=== PATIENT | male | born 1955 | race Caucasian/White ===

== ENCOUNTER 2017-03-27 09:20 | Emergency (ER) | payer BC, OTHER ==
[2017-03-27] MEDS ORDERED: Sodium Chloride 0.9% 10 ML Syringe FLUSH PRN (09:37)
--- NOTE | 2017-03-27 10:17 | CR ---
Chest: Portable view of the chest was obtained. Comparison: No prior study. Heart size and mediastinum are normal. Lungs are clear. Bony structures are grossly intact. Impression: 1. Nothing acute is appreciated on portable chest x-ray. Diagnostic code #1
[2017-03-27] MEDS ORDERED: Metoprolol Tartrate 50 MG Tab PO ONE (10:25)
--- NOTE | 2017-03-27 11:26 | EDM.PDOC ---
ED HPI GENERAL MEDICAL PROBLEM - General Chief Complaint: Cardiovascular Problem Stated Complaint: RAPID HEART RATE Time Seen by Provider: 03/27/17 09:37 Source of Information: Reports: Patient, RN Notes Reviewed - History of Present Illness INITIAL COMMENTS - FREE TEXT/NARRATIVE: 61-year-old male presents with shortness of breath, palpitations, tachycardia. He beginning noticing this last evening. He did track several readings of blood pressure and heart rate during the night and they were elevated. Continued to have elevated blood pressure this morning and elevated heart rate so therefore comes in for evaluation at this time. He has no chest pain pressure or tightness. His shortness of breath is primarily with exertion. 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 He states he did get some H2 S exposure yesterday morning. He was not aware of strong odor but states she is having trouble measuring the take and therefore did have the The take open for a longer period of time than normal. States his badge " did go off". He did have mild headache yesterday afternoon and evening. Early mild nonspecific dizziness. No nausea vomiting. This morning the headache is gone. He is on medication for hypertension. He is not diabetic. He has no known history for coronary artery disease. 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 DIRECTOR: Reports: Other (see below) Other 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 DIRECTOR: walk in clinic - Related Data Allergies Allergy/AdvReac Type Severity Reaction Status Date / Time Penicillins Allergy Leg Cramps Verified 03/27/17 09:32 Home Meds: Home Meds Amitriptyline [Elavil] 50 mg PO BEDTIME 03/27/17 [History] Febuxostat [Uloric] 80 mg PO DAILY 03/27/17 [History] Meloxicam 15 mg PO DAILY 03/27/17 [History] Metoprolol Succinate 100 mg PO DAILY 03/27/17 [History] Chelsea-3/DHA/Epa/Fish Oil [Chelsea 3 500 Softgel] 1,000 mg PO BID 03/27/17 [History ] Pseudoephedrine [Sudogest] 30 mg PO DAILY PRN 03/27/17 [History] Testosterone [Androgel] 2 applic TD DAILY 03/27/17 [History] Trandolapril 4 mg PO BID 03/27/17 [History] Triamterene/Hydrochlorothiazid [Triamterene-HCTZ 37.5-25 MG] 1 each PO DAILY [History] Past Medical History HEENT History: Reports: Impaired Vision Cardiovascular History: Reports: Hypertension, Other (See Below) Other Cardiovascular History: echocardiogram completed January 2017 and "was normal" Musculoskeletal History: Reports: Arthritis Neurological History: Reports: Other (See Below) Other Neuro History: headaches with elevated BP Psychiatric History: Reports: Anxiety, Other (See Below) Other Psychiatric History: insomnia Endocrine/Metabolic History: Reports: Other (See Below) Other Endocrine/Metabolic History: Hx lyme's disease in his 20's - Past Surgical History GI Surgical History: Reports: Hernia, Abdominal, Hernia, Inguinal Social & Family History - Family History Family Medical History: Noncontributory - Tobacco Use Smoking Status *Q: Never Smoker Second Hand Smoke Exposure: No - Caffeine Use Caffeine Use: Reports: Coffee - Recreational Drug Use Recreational Drug Use: No ED ROS GENERAL - Review of Systems Review Of Systems: See Below Constitutional: Denies: Fever, Chills, Diaphoresis HEENT: Reports: No Symptoms Respiratory: Reports: Shortness of Breath (Exertional). Denies: Cough Cardiovascular: Reports: Dyspnea on Exertion, Lightheadedness. Denies: Chest Pain (Not coughing any more than usual) GI/Abdominal: Denies: Abdominal Pain, Nausea, Vomiting Musculoskeletal: Denies: Neck Pain, Shoulder Pain, Arm Pain, Back Pain Skin: Reports: No Symptoms Neurological: Reports: Dizziness, Headache. Denies: Numbness (Resolving), Tingling, Trouble Speaking, Weakness ED EXAM, GENERAL - Physical Exam Exam: See Below General Appearance: Alert, Anxious (Mild) Eye Exam: Bilateral Eye: PERRL Throat/Mouth: Normal Inspection, Normal Oropharynx Head: Atraumatic. No: Facial Swelling Neck: Supple, Full Range of Motion Respiratory/Chest: No Respiratory Distress, Lungs Clear, Normal Breath Sounds. No: Rales, Rhonchi, Wheezing Cardiovascular: Tachycardia GI/Abdominal: Soft, Non-Tender. No: Guarding Back Exam: No: CVA Tenderness (L), CVA Tenderness (R) Extremities: Normal Inspection. No: Pedal Edema, Leg Pain Neurological: Alert, Oriented, No Motor/Sensory Deficits Skin Exam: Warm, Dry, Normal Color EKG INTERPRETATION EKG Date: 03/27/17 Rhythm: NSR O'Brien: Normal P-Wave: Present QRS: Normal ST-T: Other (He does have T-wave depression in aVL V4 and V5, no major ST elevation or depression.) Course - Vital Signs Last Recorded V/S: Last Vital Signs Temp 97.8 F 03/27/17 09:25 Pulse 109 H 03/27/17 10:31 Resp 18 03/27/17 09:25 BP 145/105 H 03/27/17 10:31 Pulse Ox 99 03/27/17 09:25 - Orders/Labs/Meds Orders: Active Orders 24 hr Category Date Time Status EKG 12 Lead [EKG Documentation Completion] [] STAT Care 03/27/17 09:37 Active Peripheral IV Care [] . DIRECTED Care 03/27/17 09:38 Active Sodium Chloride 0.9% [Saline Flush] Med 03/27/17 09:37 Active 10 ml FLUSH ASDIRECTED PRN Peripheral IV Insertion Adult [OM.PC] Stat Oth 03/27/17 09:38 Ordered Medication Orders Sodium Chloride (Saline Flush) 10 ml FLUSH ASDIRECTED PRN PRN Reason: Keep Vein Open Last Admin: 03/27/17 10:32 Dose: 10 ml Labs: Laboratory Tests 03/27/17 03/27/17 Range/Units 09:59 09:59 WBC 5.64 (4.23-9.07) K/mm3 RBC 5.62 (4.63-6.08) M/mm3 Hgb 16.2 (13.7-17.5) gm/L Hct 46.1 (40.1-51.0) % MCV 82.0 (79.0-92.2) fl MCH 28.8 (25.7-32.2) pg MCHC 35.1 (32.2-35.5) g/dl RDW Std Deviation 38.9 (35.1-43.9) fL Plt Count 274 (163-337) K/mm3 MPV 8.3 L (9.4-12.3) fl Neutrophils % (Manual) 57 (40-60) % Band Neutrophils % 0 (0-10) % Lymphocytes % (Manual) 30 (20-40) % Atypical Lymphs % 0 % Monocytes % (Manual) 11 H (2-10) % Eosinophils % (Manual) 2 (0.8-7.0) % Basophils % (Manual) 0 L (0.2-1.2) Platelet Estimate Adequate RBC Morph Comment Normal Sodium 138 (136-145) mEq/L Potassium 4.5 (3.5-5.1) mEq/L Chloride 101 (98-107) mEq/L Carbon Dioxide 25 (21-32) mEq/L Anion Gap 16.5 H (5-15) BUN 12 (7-18) mg/dL Creatinine 1.3 (0.7-1.3) mg/dL Est Cr Clr Drug Dosing 55.21 mL/min Estimated GFR (MDRD) 57 (>60) mL/min BUN/Creatinine Ratio 9.2 L (14-18) Glucose 120 H (74-106) mg/dL Calcium 9.5 (8.5-10.1) mg/dL Total Bilirubin 0.6 (0.2-1.0) mg/dL AST 29 (15-37) U/L ALT 66 H (16-63) U/L Alkaline Phosphatase 59 (46-116) U/L Troponin I < 0.017 (0.00-0.056) ng/mL Total Protein 8.0 (6.4-8.2) g/dl Albumin 4.1 (3.4-5.0) g/dl Globulin 3.9 gm/dL Albumin/Globulin Ratio 1.1 (1-2) Meds: Medications Generic Name Dose Route Start Last Admin Trade Name Freq PRN Reason Stop Dose Admin Sodium Chloride 10 ml 03/27/17 09:37 03/27/17 10:32 Saline Flush FLUSH 10 ml ASDIRECTED PRN Administration Keep Vein Open Discontinued Medications Generic Name Dose Route Start Last Admin Trade Name Freq PRN Reason Stop Dose Admin Metoprolol Tartrate 50 mg 03/27/17 10:25 03/27/17 10:31 Lopressor PO 03/27/17 10:26 50 mg ONETIME ONE Administration - Re-Assessments/Exams Free Text/Narrative Re-Assessment/Exam: 03/27/17 11:33. While awaiting lab work patient remembers that she may not have gotten has recently filled Lopressor into his pillbox. Therefore he believes quite strongly that he is not taken Lopressor for at least the last 2 days. He was given a dose of 50 mg metoprolol after I receive that information and his heart rate quite rapidly came down from 105 to 1:15 into the 90s. Pressure also is come down. He feels better. Labs have all come back relatively normal. Chest x-ray was good. Get some H2 us exposure yesterday and that may have contributed to some of his symptoms of dizziness and shortness of breath yesterday as well. He does feel up to going back to a short day of work today. I feel that is fine. Discharge instructions as documented Departure - Departure Time of Disposition: 11:23 Disposition: Home, Self-Care 01 Condition: Fair Clinical Impression: Tachycardia Hypertension Qualifiers: Hypertension type: essential hypertension Qualified Code(s): I10 - Essential ( primary) hypertension Dyspnea Qualifiers: Dyspnea type: dyspnea on exertion Qualified Code(s): R06.09 - Other forms of dyspnea Toxic effect of hydrogen sulfide Qualifiers: Encounter type: initial encounter Injury intent: accidental or unintentional Qualified Code(s): T59.6X1A - Toxic effect of hydrogen sulfide, accidental ( unintentional), initial encounter Instructions: Sinus Tachycardia, Hypertension, [id number] Referrals: Alexander Joel MD [Primary Care Provider] - Forms: ED Department Discharge Additional Instructions: Your not showing signs of H2 as toxicity at this time. Your heart rate has slowed down after we have given you 50 mg short acting metoprolol. Take your regular 100 mg dosage as soon as you do get to your medication. Take that and your other medications as prescribed. Try to be careful to watch your salt intake. Follow-up clinic as needed, return to ED as needed if symptoms worsening in any way. You are released back to work no restrictions at this time. - My Orders Last 24 Hours: My Active Orders 03/27/17 09:37 EKG 12 Lead [EKG Documentation Completion] [RC] STAT Sodium Chloride 0.9% [Saline Flush] 10 ml FLUSH ASDIRECTED PRN 03/27/17 09:38 Peripheral IV Care [RC] . DIRECTED Peripheral IV Insertion Adult [OM.PC] Stat - Assessment/Plan Last 24 Hours: My Active Orders 03/27/17 09:37 EKG 12 Lead [EKG Documentation Completion] [RC] STAT Sodium Chloride 0.9% [Saline Flush] 10 ml FLUSH ASDIRECTED PRN 03/27/17 09:38 Peripheral IV Care [RC] . DIRECTED Peripheral IV Insertion Adult [OM.PC] Stat
== END 2017-03-27 11:43 | disposition home or self-care (01) ==
LOC: JD.ED 09:20
DX: T59.6X1A Toxic effect of hydrogen sulfide, accidental (unintentional), initial encounter (principal); I10 Essential (primary) hypertension; R06.09 Other forms of dyspnea; R00.0 Tachycardia, unspecified; Z88.0 Allergy status to penicillin; Z79.899 Other long term (current) drug therapy
CPT/HCPCS: 36415; 71010; 80053; 84484; 85025; 93005; 99285; A9270; J7050; 93010; 99284-25